=== PATIENT | male | born 1995 | race African-American/Black ===

== ENCOUNTER 2017-03-01 05:01 | Emergency (ER) | payer OTHER ==
[~2017-03-01] VITALS: Ht 182.9 cm; Wt 75.0 kg
[~2017-03-01 05:01] MED LIST: AUGM875T PO; NAPR500 PO; Z.0.NO CURRENT MEDS
[2017-03-01 05:02] VITALS: BP 137/75; PULSE 67; RESP 16; TEMP 98.8; O2SAT 100
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
== END 2017-03-01 06:01 | disposition home or self-care (01) ==
LOC: NEPD 05:01
DX: S00.83XA Contusion of other part of head, initial encounter (principal); V49.9XXA Car occupant (driver) (passenger) injured in unspecified traffic accident, initial encounter
CPT/HCPCS: 70486; 99284